=== PATIENT | female | born 1975 | race Caucasian/White ===

== ENCOUNTER 2016-06-27 16:13 | Emergency (ER) | payer MEDICAID ==
[2016-06-27] MEDS ORDERED: Amoxicillin/Potassium Clav 875 MG TAB ONE (18:30)
[2016-06-27] MEDS ORDERED: Acetaminophen 500 MG TAB ONE (18:30)
[2016-06-27] MEDS ORDERED: Ibuprofen 200 MG TAB ONE (18:30)
[2016-06-27 18:48] LABS: Band 7 % (5-11); Hematocrit 32.9 % (36.0-47.0); Hypochromia SLIGHT = 6-15 cells (100X) (0-5/hpf); Mean Platelet Volume 5.4 fL (7.4-10.4); Neutrophil 25 % (42-75); Reactive Lymphocytes 5 % (0-10); Red Blood Cell (RBC) Count 3.65 mill/uL (4.20-5.40); White Blood Cell (WBC) Count 1.9 thou/uL (4.8-10.8)
== END 2016-06-27 18:47 | disposition home or self-care (01) ==
LOC: NAV ERS 16:13
DX: J02.9 Acute pharyngitis, unspecified (principal); Z87.891 Personal history of nicotine dependence
CPT/HCPCS: 85025; 87070; 87430; 99283